=== PATIENT | female | born 1935 | race Caucasian/White ===

== ENCOUNTER 2017-07-06 15:22 | Emergency (ER) | payer OTHER ==
[~2017-07-06] VITALS: Ht 152.4 cm; Wt 61.0 kg
[2017-07-06 15:30] VITALS: BP 177/75; PULSE 73; RESP 16; TEMP 99; O2SAT 95
[2017-07-06 15:57] LABS: BILIRUBIN, URINE NEG (NEG); BLOOD, URINE MOD (NEG); GLUCOSE,URINE 100 mg/dL (NEG); KETONE, URINE NEG (NEG); NITRITE,URINE POS (NEG); PH, URINE 5.5 (5.0-8.5); URINE LEUKOCYTE ESTERASE LARGE (NEG)
[2017-07-06 15:59] LABS: URINE COLOR ORANGE (YELLW/STRAW)
[2017-07-06 16:18] LABS: BACTERIA, URINE FEW /hpf; SQUAMOUS EPITHELIAL CELL URINE 0-5 /hpf (0-5); WBC, URINE INNUM /hpf (0-5); WHITE BLOOD CELL CLUMPS MANY
--- NOTE | 2017-07-06 16:29 | PD ---
HPI Chief Complaint: Complaint Time Seen by Provider: 16:12 Travel History International Travel<30 days: No Contact w/Intl Traveler<30days: No Traveled to known affect area: No History of Present Illness HPI 82 y/o female presents with persistent burning when she urinates. She is been to an urgent care 3 times over the past month starting May 29. She states she has taken 3 rounds of antibiotics and knows one of them with ciprofloxacin and the last one was a different one but she doesn't recall the name. She states she's also having intermittent low back pain but denies any other concurrent complaints. She is visiting from out of town until the beginning of July. Quality is burning. Severity is progressive. She states she tried an [id number] medication to try to help with the burning but is not helping. She denies specific modifying factors. PFSH Past Medical History Medical History: Denies Significant Hx Past Surgical History Hysterectomy: Yes Social History Tobacco Use: No Allergies-Medications (Allergen,Severity, Reaction): Coded Allergies: Sulfa (Sulfonamide Antibiotics) (Verified Adverse Reaction, Intermediate, MAKES FEEL FUNNY, 07/06/17) Reported Meds & Prescriptions Reported Meds & Active Scripts Active Keflex (Cephalexin) 500 Mg Cap 500 Mg PO Q12H 10 Days Reported Cranberry Urinary Comfort (Vitamins C & E) 1 Cap 1 Cap PO DAILY Vitamin E Water Soluble (Vitamin E) 1,000 Unit Cap 1,000 Units PO DAILY Vitamin C ER (Ascorbic Acid) 500 Mg Yoni 1,000 Mg PO Vitamin D-1000 (Cholecalciferol) 1,000 Unit Tab 2,000 Units PO DAILY Temazepam 15 Mg Cap 15 Mg PO HS PRN Simvastatin 40 Mg Tab 40 Mg PO HS Aspirin 81 Mg Chew 81 Mg CHEW DAILY Allopurinol 100 Mg Tab 100 Mg PO DAILY Synthroid (Levothyroxine Sodium) 50 Mcg Tab 50 Mcg PO DAILY Metoprolol Tartrate 25 Mg Tab 12.5 Mg PO DAILY Lisinopril 20 Mg Tab 20 Mg PO DAILY Review of Systems Except as stated in HPI: all other systems reviewed are Neg Physical Exam Narrative GENERAL: 82-year-old well-appearing female SKIN: Focused skin assessment warm/dry. HEAD: Atraumatic. Normocephalic. EYES: Pupils equal and round. No scleral icterus. No injection or drainage. ENT: No nasal bleeding or discharge. Mucous membranes pink and moist. NECK: Trachea midline. No JVD. CARDIOVASCULAR: Regular rate and rhythm. RESPIRATORY: No accessory muscle use. Clear to auscultation. Breath sounds equal bilaterally. GASTROINTESTINAL: Abdomen soft, non-tender, nondistended. MUSCULOSKELETAL: No obvious deformities. No clubbing. No cyanosis. No edema. Back: No CVA tenderness or midline spinal pain NEUROLOGICAL: Awake and alert. Motor grossly within normal limits. Normal speech. PSYCHIATRIC: Appropriate mood and affect; insight and judgment normal. Data Data Last Documented VS Vital Signs Date Time Temp Pulse Resp B/P (MAP) Pulse Ox O2 Delivery O2 Flow Rate FiO2 07/06/17 17:00 95 Room Air 07/06/17 15:30 99.0 73 16 177/75 (109) Orders Orders Urinalysis - C+S If Indicated (07/06/17 15:43) Complete Blood Count With Diff (07/06/17 16:13) Basic Metabolic Panel (Bmp) (07/06/17 16:13) Iv Access Insert/Monitor (07/06/17 16:13) Ecg Monitoring (07/06/17 16:13) Oximetry (07/06/17 16:13) Urine Culture (07/06/17 15:40) Ct Abd/Pel W/O Iv Contrast (07/06/17 ) Ceftriaxone Inj (Rocephin Inj) (07/06/17 16:30) Ed Discharge Order (07/06/17 18:15) Labs Laboratory Tests Test 07/06/17 15:40 07/06/17 17:00 Urine Color ORANGE Urine Turbidity SL CLOUDY Urine pH 5.5 Urine Specific [place] LESS/EQUAL 1.005 Urine Protein TRACE mg/dL Urine Glucose (UA) 100 mg/dL Urine Ketones NEG mg/dL Urine Occult Blood MOD Urine Nitrite POS Urine Bilirubin NEG Urine Urobilinogen 1.0 MG/DL Urine Leukocyte Esterase LARGE Urine RBC 4-9 /hpf Urine WBC INNUM /hpf Urine WBC Clumps MANY Urine Squamous Epithelial Cells 0-5 /hpf Urine Bacteria FEW /hpf Microscopic Urinalysis Comment CULTURE INDICATED White Blood Count 9.4 TH/MM3 Red Blood Count 4.16 MIL/MM3 Hemoglobin 13.0 GM/DL Hematocrit 38.7 % Mean Corpuscular Volume 93.0 FL Mean Corpuscular Hemoglobin 31.2 PG Mean Corpuscular Hemoglobin Concent 33.5 % Red Cell Distribution Width 12.1 % Platelet Count 164 TH/MM3 Mean Platelet Volume 8.0 FL Neutrophils (%) (Auto) 68.4 % Lymphocytes (%) (Auto) 22.4 % Monocytes (%) (Auto) 6.2 % Eosinophils (%) (Auto) 2.5 % Basophils (%) (Auto) 0.5 % Neutrophils # (Auto) 6.5 TH/MM3 Lymphocytes # (Auto) 2.1 TH/MM3 Monocytes # (Auto) 0.6 TH/MM3 Eosinophils # (Auto) 0.2 TH/MM3 Basophils # (Auto) 0.0 TH/MM3 CBC Comment DIFF FINAL Differential Comment Blood Urea Nitrogen 18 MG/DL Creatinine 0.90 MG/DL Random Glucose 81 MG/DL Calcium Level 8.9 MG/DL Sodium Level 134 MEQ/L Potassium Level 4.0 MEQ/L Chloride Level 100 MEQ/L Carbon Dioxide Level 27.0 MEQ/L Anion Gap 7 MEQ/L Estimat Glomerular Filtration Rate 60 ML/MIN MDM Medical Decision Making Medical Screen Exam Complete: Yes Emergency Medical Condition: Yes Medical Record Reviewed: Yes (pmh confirmed) Interpretation(s) ua with uti CBC & BMP Diagram 07/06/17 17:00 Calcium Level 8.9 Last 24 hours Impressions Abdomen/Pelvis CT 07/06/17 0000 Signed Impressions: Service Date/Time: Thursday, July 06, 2017 17:53 - CONCLUSION: 1. No renal stones or obstructive uropathy. There are a few benign-appearing cysts of both kidneys. 2. Small gas in the urinary bladder lumen. Loss of fat planes between the bladder and the vaginal cuff as well as the sigmoid colon. Vaginal vesical and/or colovesical fistula not excludable by this appearance. The urinary bladder otherwise appears within normal limits. 3. There is a 2 cm cystic structure in the right adnexal region, appears recently simple but still unexpected in a patient this age. Followup pelvic ultrasound recommended in 8- 12 weeks for surveillance. 4. Atherosclerotic aorta. No aneurysm. 5. Sigmoid colon diverticulosis. No acute diverticulitis. Julio Canela MD Given copy of CT and emphasized the importance of follow-up Differential Diagnosis stone, renal failure, uti.... Narrative Course will check labs, ct abdomen and dose with rocephin given uti ED workup shows UTI. 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 Patient understands the importance of close outpatient follow- up of this and adnexal cyst.Patient denies any new complaints and states that they are feeling better. Patient happy with care, all questions answered. Patient knows that follow up is incumbent on them and to return to the emergency room immediately if new or worsening symptoms develop. Patient given strict return precautions, vitals reviewed and are normal, agrees to further workup as an outpatient. Physician Communication Physician Communication ob hospitalist covering dr cuevas states can follow up outpatient for fistula and cyst Diagnosis Primary Impression: UTI (urinary tract infection) Qualified Codes: N39.0 - Urinary tract infection, site not specified Additional Impressions: Adnexal cyst Fistula Referrals: Group Home Worker call for appointment sunday Urologist call for appointment sunday Patient Instructions: General Instructions Additional Instructions: return as needed, take antibiotic as directed, keep blood pressure log Med/Other Pt SpecificInfo: Prescription(s) given Scripts Cephalexin (Keflex) 500 Mg Cap 500 MG PO Q12H for Infection for 10 Days, #20 CAP 0 Refills Prov: Carmelina Johnson MD 07/06/17 Disposition: 01 DISCHARGE HOME Condition: Stable Carmelina Johnson MD Jul 06, 2017 16:29
[2017-07-06] MEDS ORDERED: cefTRIAXone INJ 1,000 MG in SODIUM CHLORIDE 0.9% INJ 100 ML IV ONE (16:30)
[2017-07-06] MEDS ORDERED: LEVO.05 PO (16:35)
[2017-07-06] MEDS ORDERED: VITA-141 PO (16:35)
[2017-07-06] MEDS ORDERED: CRANCAP2 PO (16:35)
[2017-07-06] MEDS ORDERED: LISI-515 PO (16:35)
[2017-07-06] MEDS ORDERED: METO25TA3 PO (16:35)
[2017-07-06] MEDS ORDERED: ALLO100T PO (16:35)
[2017-07-06] MEDS ORDERED: VITA500T83 PO (16:35)
[2017-07-06] MEDS ORDERED: VITA1000 PO (16:35)
[2017-07-06] MEDS ORDERED: SIMV40TA PO (16:35)
[2017-07-06] MEDS ORDERED: ASPI-516 CHEW (16:35)
[2017-07-06] MEDS ORDERED: TEMA15CA PO (16:35)
[2017-07-06 17:00] VITALS: O2SAT 95
[2017-07-06 17:07] LABS: AUTOMATED NEUTROPHIL # 6.5 TH/MM3 (1.8-7.7); BASOPHIL % 0.5 % (0.0-2.0); EOSINOPHIL # 0.2 TH/MM3 (0-0.4); EOSINOPHIL % 2.5 % (0.0-4.0); HEMATOCRIT 38.7 % (35.0-46.0); LYMPH % 22.4 % (9.0-44.0); LYMPHOCYTE # 2.1 TH/MM3 (1.0-4.8); MEAN CORPUSCULAR HEMOGLOBIN 31.2 PG (27.0-34.0); MEAN CORPUSCULAR HGB CONC 33.5 % (32.0-36.0); MONO % 6.2 % (0.0-8.0); MONOCYTE # 0.6 TH/MM3 (0-0.9); NEUT % 68.4 % (16.0-70.0); PLATELET COUNT 164 TH/MM3 (150-450); RED BLOOD COUNT 4.16 MIL/MM3 (4.00-5.30); RED CELL DISTRIBUTION WIDTH 12.1 % (11.6-17.2); WHITE BLOOD COUNT 9.4 TH/MM3 (4.0-11.0)
[2017-07-06 17:22] LABS: CALCIUM 8.9 MG/DL (8.5-10.1)
[2017-07-06 17:26] LABS: CREATININE 0.9 MG/DL (0.50-1.00)
--- NOTE | 2017-07-06 18:11 | RADRPT ---
EXAM DATE/TIME: 07/06/2017 17:53 [facility] COMPARISON: No previous studies available for comparison. INDICATIONS : Painful urination. Recurrent UTI's. ORAL CONTRAST: No oral contrast ingested. RADIATION DOSE: 10.23 CTDIvol (mGy) MEDICAL HISTORY : Hypertension. SURGICAL HISTORY : Hysterectomy. ENCOUNTER: Initial ACUITY: 1 month PAIN SCALE: 8/10 LOCATION: Bladder. TECHNIQUE: Volumetric scanning of the abdomen and pelvis was performed. Using automated exposure control and ad justment of the mA and/or kV according to patient size, radiation dose was kept as low as reasonably achievable to obtain optimal diagnostic quality images. DICOM format image data is available electro nically for review and comparison. FINDINGS: LOWER LUNGS: The visualized lower lungs are clear. LIVER: Homogeneous density without lesion. There is no dilation of the biliary tree. No calcified gallston es. SPLEEN: Normal size without lesion. PANCREAS: Within normal limits. KIDNEYS: Several benign-appearing cysts on both sides. No stones. No hydronephrosis or hydroureter. ADRENAL GLANDS: Within normal limits. VASCULAR: Atherosclerotic aorta. No aneurysm. BOWEL/MESENTERY: There is diverticulosis of the sigmoid colon. No evidence of acute diverticulitis. ABDOMINAL WALL: Within normal limits. RETROPERITONEUM: There is no lymphadenopathy. BLADDER: Hysterectomy changes are noted. There is loss of fat planes between the vaginal cuff and the urinary bladder posteriorly. There is also loss of fat planes between the sigmoid colon and the urinary bladd er superiorly. A few bubbles of air are seen within the bladder lumen. A vaginal vesical or colovesic al fistula would be conceivable. An approximately 2 cm cyst is seen in the right adnexal region. INGUINAL: There is no lymphadenopathy or hernia. MUSCULOSKELETAL: No acute bony abnormality demonstrated. CONCLUSION: 1. No renal stones or obstructive uropathy. There are a few benign-appearing cysts of both kidneys. 2. Small gas in the urinary bladder lumen. Loss of fat planes between the bladder and the vaginal cuf f as well as the sigmoid colon. Vaginal vesical and/or colovesical fistula not excludable by this nitesh earance. The urinary bladder otherwise appears within normal limits. 3. There is a 2 cm cystic structure in the right adnexal region, appears recently simple but still un expected in a patient this age. Followup pelvic ultrasound recommended in 8-12 weeks for surveillance . 4. Atherosclerotic aorta. No aneurysm. 5. Sigmoid colon diverticulosis. No acute diverticulitis. Julio Canela MD on July 06, 2017 at 18:04 Board Certified Radiologist. This report was verified electronically.
[2017-07-06] MEDS ORDERED: CEPH-460 PO (18:22)
[2017-07-06 18:30] VITALS: BP 197/77; PULSE 70; RESP 18; O2SAT 95
== END 2017-07-06 18:30 | disposition home or self-care (01) ==
LOC: PHED 15:22
DX: N39.0 Urinary tract infection, site not specified (principal); N83.201 Unspecified ovarian cyst, right side; N32.2 Vesical fistula, not elsewhere classified; M54.5 Low back pain; B96.89 Other specified bacterial agents as the cause of diseases classified elsewhere
CPT/HCPCS: 74176; 80048; 81001; 85025; 87077; 87086; 87186; 96365; 99284; J0696